=== PATIENT | female | born 1940 | race Caucasian/White ===

== ENCOUNTER → 2016-11-22 10:42 | Outpatient (CLI) | payer MEDICARE | END | disposition home or self-care (01) | LOC: D.RAD 10:42 | DX: S46.012A Strain of muscle(s) and tendon(s) of the rotator cuff of left shoulder, initial encounter (principal) ==

== ENCOUNTER 2017-08-08 19:10 | Emergency (ER) | payer MEDICARE ==
[2017-08-08 19:50] LABS: BASOPHILS 0.5 % (0-2); EOSINOPHILS 1.8 % (0-7); HEMATOCRIT 41.1 % (36.0-48.0); HEMOGLOBIN 13.7 g/dL (12-16); IMMATURE GRANULOCYTES 0.2 % (0-5); LYMPHOCYTES 20.3 % (15-50); MCH 28.8 pg (26.0-34.0); MCHC 33.3 g/dL (31.0-37.0); MCV 86.3 fL (80.0-100.0); MEAN PLATELET VOLUME 9.5 fL (7.4-10.4); MONOCYTES 12.7 % (2-11); NEUTROPHILS 64.5 % (40-80); PLATELET COUNT 231 10x3/uL (130-400); RBC 4.76 10x6/uL (4.00-5.40); RDW 14.7 % (11.5-14.5); WBC 5.6 10x3/uL (4.8-10.8)
== END 2017-08-08 20:47 | disposition home or self-care (01) ==
LOC: D.ER 19:10
PROVIDERS: Family Medicine
DX: S02.2XXA Fracture of nasal bones, initial encounter for closed fracture (principal); W01.0XXA Fall on same level from slipping, tripping and stumbling without subsequent striking against object, initial encounter; Y93.89 Activity, other specified; Y92.029 Unspecified place in mobile home as the place of occurrence of the external cause; I10 Essential (primary) hypertension

== ENCOUNTER 2019-06-04 05:33 | Day surgery (SDC) | payer MEDICARE ==
[~2019-06-04] VITALS: Ht 170.2 cm; Wt 72.6 kg
[~2019-06-04 05:33] MED LIST: COZAAR100 MG PO; HYDROCHLOROTH12.5 M1 PO; OMEPRAZOLE40 MG PO; TOPROL XL100 MG PO; ULTRAM50 MG PO; XARELTO10 MG PO
[2019-06-04 06:13] LABS: MCH 30.2 pg (26.0-34.0); MCV 86.4 fL (80.0-100.0); MEAN PLATELET VOLUME 9.3 fL (7.4-10.4); RBC 4.63 10x6/uL (4.00-5.40); RDW 12.9 % (11.5-14.5); WBC 4.8 10x3/uL (4.8-10.8)
[2019-06-04 06:25] LABS: APTT 29.1 SECONDS (22.8-39.4); INR 0.96 (0.85-1.17); PROTIME 12.3 SECONDS (11.6-15.0)
[2019-06-04 06:37] VITALS: BP 183/83; Ht 170.2 cm; Wt 72.6 kg
[2019-06-04] MEDS ORDERED: ZETIA10 MG PO (06:37)
[2019-06-04] MEDS ORDERED: HYDROCODON-ACE1 EAC7 PO (08:59)
== END 2019-06-04 11:15 | disposition home or self-care (01) ==
LOC: D.OPS 05:33 → D.PAN 08:00 → D.OPS 08:00
PROVIDERS: Anesthesiology; ATTEND Surgery
DX: K80.10 Calculus of gallbladder with chronic cholecystitis without obstruction (principal); Z01.812 Encounter for preprocedural laboratory examination

== ENCOUNTER 2020-06-02 12:24 | Inpatient (IN) | payer OTHER ==
[~2020-06-02] VITALS: Ht 165.1 cm; Wt 77.1 kg
[~2020-06-02 12:24] MED LIST changes: +HYDROCODON-ACE1 EAC7 PO; +ZETIA10 MG PO
[2020-06-02 12:57] LABS: BASOPHILS 0.4 % (0-2); EOSINOPHILS 0.7 % (0-7); HEMATOCRIT 42.2 % (36.0-48.0); IMMATURE GRANULOCYTES 0.4 % (0-5); LYMPHOCYTES 17.9 % (15-50); MCH 29.7 pg (26.0-34.0); MCHC 33.2 g/dL (31.0-37.0); MCV 89.4 fL (80.0-100.0); MEAN PLATELET VOLUME 9.2 fL (7.4-10.4); MONOCYTES 9.9 % (2-11); NEUTROPHILS 70.7 % (40-80); PLATELET COUNT 205 10x3/uL (130-400); RBC 4.72 10x6/uL (4.00-5.40); RDW 13.4 % (11.5-14.5); WBC 5.5 10x3/uL (4.8-10.8)
[2020-06-02 13:28] LABS: ANION GAP 11.1 mmol/L (8-16); CALCIUM 9.6 mg/dL (8.5-10.1); CARBON DIOXIDE 30.6 mmol/L (21.0-32.0); CREATININE - SERUM 0.9 mg/dL (0.6-1.3); POTASSIUM - SERUM 3.7 mmol/L (3.5-5.1)
[2020-06-02 13:34] LABS: ALBUMIN 3.8 g/dL (3.4-5.0); BILIRUBIN - TOTAL 0.49 mg/dL (0.2-1.3); PROTEIN - SERUM 7.2 g/dL (6.4-8.2)
--- NOTE | 2020-06-02 13:35 | NUR ---
RTND FROM CT. PT REPORT "I TOOK THE COLLAR OFF AND I DON'T WANT IT BACK ON" EXPL RISKS AND BENEFITS. PT VERB UNDER AND CONT TO REFUSE C- COLLAR
--- NOTE | 2020-06-02 13:37 | NUR ---
PT NOT IN ROOM. C-COLLAR LYING ON BED. SPOKE WITH CORINA POLLACK AND SHE DID NOT OK C-COLLAR TO BE REMOVED
[2020-06-02 13:39] VITALS: BP 191/82
[2020-06-02 13:43] LABS: BILIRUBIN NEGATIVE (NEGATIVE); GLUCOSE NEGATIVE (NEGATIVE); KETONE NEGATIVE (NEGATIVE); NITRITE NEGATIVE (NEGATIVE); UROBILINOGEN NORMAL (NORMAL)
--- NOTE | 2020-06-02 13:43 | NUR ---
[facility] REPORT FROM DR VAIL, RADIOLOGIST REPORTS CT HEAD SHOWS ACUTE INTRACRANIAL HEMORRHAGE. CORINA POLLACK NOTIFIED
--- NOTE | 2020-06-02 14:35 | NUR ---
JAKI AT FOR WOUND CLOSURE
[2020-06-02 14:41] VITALS: BP 172/74
--- NOTE | 2020-06-02 15:19 | NUR ---
BILAT HAND ABRASIONS CLEANSED WITH WOUND CLEANSER, DRIED AND ABX OINTMENT APPLIED
[2020-06-02 16:16] VITALS: BP 154/76
[2020-06-02] MEDS ORDERED: QUETIAPINE PO (16:56)
[2020-06-02] MEDS ORDERED: GLUCOSAMINE HC500 MG PO (16:56)
[2020-06-02] MEDS ORDERED: FIBER-TABS625 MG (16:57)
[2020-06-02] MEDS ORDERED: PROBIOTIC1 EAC1 PO (16:57)
[2020-06-02] MEDS ORDERED: CO Q-10200 MG PO (16:57)
[2020-06-02] MEDS ORDERED: CALCIUM 600 +1 EAC3 (16:57)
[2020-06-02] MEDS ORDERED: MULTI-DAY VITAM1 TAB PO (16:57)
--- NOTE | 2020-06-02 17:00 | NUR ---
SITTING UP IN CHAIR AT BS. S/O AT BS. NO C/O
[2020-06-02 18:00] VITALS: BP 143/69
--- NOTE | 2020-06-02 18:35 | NUR ---
PT GIVEN A SANDWICH.
--- NOTE | 2020-06-02 18:44 | NUR ---
REPORT CALLED TO BERNARDINO MAC
[2020-06-02 18:50] VITALS: BP 144/64
--- NOTE | 2020-06-02 18:50 | NUR ---
ADMIT TO ROOM #2302, CONDITION STABLE
[2020-06-02] MEDS ORDERED: LASIX40 MG PO (19:43)
--- NOTE | 2020-06-02 20:10 | NUR ---
PT A/O X4. COMPLAINS OF HEADACHE PRN TYLENOL GIVEN. VITALS STABLE. NO S/S OF DISTRESS. BED LOW CALL LIGHT WITHIN REACH. WILL CONTINUE TPO MONITOR.
--- NOTE | 2020-06-02 21:02 | NUR ---
PT FAMILY NOTIFIED VIA CELL PHONE IN PT'S ROOM. VITALS ARE STABLE. PT A/OX4. NO FURTHER QUESTIONS OR CONCERNS AT THIS TIME. BED LOW CALL LIGHT WITHIN REACH. WILL CONTINUE TO MONITOR.
[2020-06-03 01:00] VITALS: BP 109/66
[2020-06-03 02:00] VITALS: BP 106/82
[2020-06-03 03:09] LABS: BASOPHILS 0.1 % (0-2); EOSINOPHILS 0.1 % (0-7); HEMATOCRIT 37.7 % (36.0-48.0); HEMOGLOBIN 12.6 g/dL (12-16); IMMATURE GRANULOCYTES 0.2 % (0-5); LYMPHOCYTES 10.7 % (15-50); MCH 29.8 pg (26.0-34.0); MCHC 33.4 g/dL (31.0-37.0); MCV 89.1 fL (80.0-100.0); MEAN PLATELET VOLUME 9.1 fL (7.4-10.4); MONOCYTES 7.3 % (2-11); NEUTROPHILS 81.6 % (40-80); PLATELET COUNT 197 10x3/uL (130-400); RBC 4.23 10x6/uL (4.00-5.40); RDW 13.5 % (11.5-14.5)
[2020-06-03 03:13] LABS: WBC 8.5 10x3/uL (4.8-10.8)
[2020-06-03 03:25] LABS: ANION GAP 11.1 mmol/L (8-16); BILIRUBIN - TOTAL 0.8 mg/dL (0.2-1.3); CALCIUM 8.5 mg/dL (8.5-10.1); CARBON DIOXIDE 26.4 mmol/L (21.0-32.0); MAGNESIUM - SERUM 1.7 mg/dL (1.8-2.4); PHOSPHOROUS 2.7 mg/dL (2.5-4.9); POTASSIUM - SERUM 3.5 mmol/L (3.5-5.1); PROTEIN - SERUM 6.3 g/dL (6.4-8.2)
[2020-06-03 04:00] VITALS: BP 112/62
[2020-06-03 06:20] VITALS: BP 118/80
--- NOTE | 2020-06-03 07:15 | NUR ---
REPORT RECIEVED, SHIFT ASSESSMENT COMPLETE, PT IS ALERT AND ORIENTED, ON RA WITH 97% O2 SAT. ALL PPP, VSS, CALL LIGHT IN REACH
[2020-06-03 10:48] VITALS: Ht 165.1 cm; Wt 77.1 kg
[2020-06-03] MEDS ORDERED: ASPIRIN EC325 M1 PO (11:53)
--- NOTE | 2020-06-03 13:15 | NUR ---
RIGHT WRIST PIV DC'D AT THIS TIME, TIP INTACT
--- NOTE | 2020-06-03 13:24 | NUR ---
PT DC'D AT THIS TIME VIA WHEELCHAIR
--- NOTE | 2020-06-04 12:14 | NUR ---
CHAPIN TORREZ CALLED, UNABLE TO SCHEDULE OP CT SCAN, CALLED SCHEDULING AND MADE APPOINTMENT FOR 06/16/20 AT 0900, ALSO CALLED DR. DYER OFFICE AND SCHEDULED APPOINTMENT FOR 06/24/20 AT 1600
== END 2020-06-03 13:25 | disposition home or self-care (01) | DRG 84 ==
LOC: D.ER 12:24 → D.ICU 16:40 → D.EDHOLD 16:40 → D.ICU 17:23
PROVIDERS: Family Medicine; ADMIT Emergency Medicine; ATTEND Emergency Medicine
PROC: 0HQ1XZZ Repair Face Skin, External Approach (ICD-10-PCS; principal; 2020-06-02)
DX: S06.309A Unspecified focal traumatic brain injury with loss of consciousness of unspecified duration, initial encounter (principal); W19.XXXA Unspecified fall, initial encounter; E78.5 Hyperlipidemia, unspecified; I10 Essential (primary) hypertension; Z79.01 Long term (current) use of anticoagulants; K21.9 Gastro-esophageal reflux disease without esophagitis

== ENCOUNTER → 2020-06-16 09:07 | Outpatient (CLI) | payer OTHER ==
[2020-06-03 10:48] VITALS: BMI 28.2
[~2020-06-16 09:07] MED LIST changes: +ASPIRIN EC325 M1 PO; +CALCIUM 600 +1 EAC3; +CO Q-10200 MG PO; +FIBER-TABS625 MG; +GLUCOSAMINE HC500 MG PO; +LASIX40 MG PO; +MULTI-DAY VITAM1 TAB PO; +PROBIOTIC1 EAC1 PO; +QUETIAPINE PO
== END | disposition home or self-care (01) ==
LOC: D.CT 09:00
PROVIDERS: ATTEND Neurological Surgery
DX: I62.9 Nontraumatic intracranial hemorrhage, unspecified (principal)